=== PATIENT | female | born 1990 | race Two or more races ===

== ENCOUNTER 2024-08-04 09:35 | Inpatient (IN) | payer MEDICAID ==
[2024-08-04] VITALS (11 sets, daily range): BP systolic 108–139; BP diastolic 62–88; PULSE 84–106; RESP 15–18; TEMP 98.1–99.5; O2SAT 95–98
[~2024-08-04] VITALS: Ht 175.3 cm; Wt 109.8 kg
--- NOTE | 2024-08-04 10:28 | DVH ---
BIOPHYSICAL PROFILE HISTORY: pih/gdma1 TECHNIQUE: Multiple transabdominal real-time grayscale sonographic images through the gravid uterus of the fetus with duplex Doppler color flow and M-mode spectral analysis FINDINGS: BIOPHYSICAL PROFILE: breathing score: 2 movement score: 2 tone score: 2 Quantitative ALEXANDER score: 2 (ALEXANDER: 15.8 Cm.) Total score: 8/8 The cervix not visualized. Single live fetus in cephalic presentation. The placenta is anterior. No evidence of previa or abrupt ion. IMPRESSION: 1. Biophysical profile score: 8/8.
[2024-08-04 10:37] LABS: Urine Bacteria None Seen /hpf (None Seen)
[2024-08-04 10:40] LABS: Basophils # (auto) 0 10 ^3/uL (0-0.2); Basophils % (auto) 0.1 % (0.0-2.0); Eosinophils # (auto) 0.1 10 ^3/uL (0-0.8); Eosinophils % (auto) 0.6 % (0.0-7.0); Hematocrit 37.6 % (36.0-46.0); Hemoglobin 12.6 g/dL (12.2-16.2); Lymphocytes # (auto) 1.5 10 ^3/uL (0.4-5.4); Mean Corpuscular Hemoglobin 28.4 pg (28.0-32.0); Mean Corpuscular Hgb Conc. 33.6 g/dL (32.0-36.0); Mean Corpuscular Volume 84.5 fL (80.0-100.0); Monocytes # (auto) 0.6 10 ^3/uL (0-1.3); Monocytes % (auto) 6.1 % (0.0-12.0); Neutrophils % (auto) 77.2 % (37.0-80.0); Platelet Count (auto) 230 10^3/uL (140-450); Red Blood Cells 4.45 10^6/uL (4.0-5.20); Red Cell Distribution Width 14.2 % (11.8-14.3); White Blood Cell 9.1 10^3/uL (4.4-10.8)
[2024-08-04 10:44] LABS: Urine Blood 1+ /uL (Negative); Urine Clarity Clear (Clear); Urine Color Light-Yellow (Yellow); Urine Protein, UAD Negative (Negative); Urine Specific Gravity 1.007 (1.001-1.035); Urine Squamous Epithelial Cell FEW /hpf (<5); Urine Urobilinogen Normal (Negative); Urine WBC 1 /hpf (0 - 5)
[2024-08-04] MEDS ORDERED: LACTATED RINGER'S 1,000 ML IV SCH (10:45)
--- NOTE | 2024-08-04 10:45 | DVHHP2 ---
OB CC & HPI Date Date of Admission: Aug 04, 2024 Patient Identification: : 4 Para: 2 EDC: Aug 20, 2024 EGA: 37+wks Chief Complaints: Reason for admission: observation Indication for : desires repeat Admission Nurse Assessment Rev: No History of Present Complaints pt is admitted for pih,she has gdm and previous cs x1 .pt jhas severe features of pih Past Medical History Cardiac: No pertinent Hx Pulmonary: No pertinent Hx Central Nervous System: No pertinent Hx GI: No pertinent Hx Hemotology/Oncology: No pertinent Hx Hepatobiliary: No pertinent Hx Psychiatric: No pertinent Hx Musculoskeletal: No pertinent Hx Rheumotologic: No pertinent Hx Infectious Disease: No peritnent Hx ENT: No pertinent Hx Renal/: No pertinent Hx Endocrine: No pertinent Hx Dermatology: No pertinent Hx Past Surgical History: OB History OB History Care: Good Care Ultrasounds: Normal mid trimester US Obstetrical Complications: Gestational Diabetes, Pre-eclampsia Medical Complications: None Family & Social History Family/Social History Blood Type: A+ Rubella: immune RPR/VDRL: Negative GBS Status: Unknown HBsAG: Negative Review of Systems Constitutional: No symptom reported Ears, Nose, & Throat: No symptom reported Eyes: No symptom reported Pulmonary/Respiratory: No symptom reported Cardiovascular: No symptom reported Gastrointestinal: No symptom reported Genitourinary: No symptom reported Musculoskeletal: No symptom reported Skin: No symptom reported Psychiatric: No symptom reported Endocrine: No symptom reported Hemotologic/Lymphatic: No symptom reported OB Admission Exam Physical Exam HEENT: TMs Normal, Fontanelles Normal, Nasal Mucosa Normal, Eyes non-injected, Oropharynx Normal, PERRLA, Moist Membranes, EOMI Heart: Rhythm Normal Lungs: Clear Abdomen: Non tender Extremities: Normal Reflexes: Normal Cervical Dilatation: Fingertip Station: -3 Membranes: Intact Heart Rate: 130's Accelerations: Accelerations Present Decelerations: No Decelerations Short Term Variability: Present Half-Way Variability: Average (6-25) Contractions on Admission: >10 Minutes Apart Intensity: Mild OB Plan Plan Admitting Diagnosis: iup at 37+wks with pih gdm ama morbid obesity previous csx1 desires [facility] Plan: Section Other Plan: informed consent obtained ,risks and compl of cs d/w pt.pt fully understands wishes to proceed with [facility] ANA LUISA HENAO DO Aug 04, 2024 10:45
[2024-08-04 10:54] LABS: INR 0.98 (0.9-1.15); Partial Thromboplastin Time 24.4 SEC (24.5-34.5); Prothrombin Time 10.4 sec (9.3-11.8)
[2024-08-04] MEDS: hydrALAZINE HCL 20 MG/ML VL IV ONE (11:06)
[2024-08-04] MEDS: LACTATED RINGER'S 1,000 ML IV ONE (11:25)
[2024-08-04] MEDS: ceFAZolin 2 GM/D5W50ml 50 ML IV ONE (11:26)
[2024-08-04] MEDS ORDERED: HYDR-4072 PO (11:48)
[2024-08-04] MEDS ORDERED: DOCU-94 PO (11:48)
[2024-08-04] MEDS ORDERED: IBUP-1456 PO ×2 (11:48→21:14)
[2024-08-04 11:50] LABS: Alanine Aminotransferase 19 U/L (7-40); Anion Gap 12 (5-15); Aspartate Aminotransferase 29 U/L (13-40); BUN/Creatinine Ratio 12.9 (10.0-20.0); Calcium 10.2 mg/dL (8.7-10.4); Potassium 3.7 mmol/L (3.5-5.1); Sodium 138 mmol/L (136-145); Uric Acid 4.5 mg/dL (3.1-7.8)
[2024-08-04 11:51] LABS: Albumin 3.9 g/dL (3.2-4.8); Bilirubin, Total 0.3 mg/dL (0.2-1.0)
[2024-08-04 11:53] LABS: Amphetamine Screen, Urine Neg (NEGATIVE); Barbiturate Scree,Urine Neg (NEGATIVE); Benzodiazephine Screen, Urine Neg (NEGATIVE); Cannabinoid Screen, Urine Neg (NEGATIVE); Cocaine Screen, Urine Neg (NEGATIVE); Opiate Scree,Urine Neg (NEGATIVE); Phencyclidine Screen, Urine Neg (NEGATIVE)
[2024-08-04 11:55] LABS: Alkaline Phosphatase 157 U/L (46-116); Blood Urea Nitrogen 8 mg/dL (9-23); Carbon Dioxide 17 mmol/L (20-31); Chloride 109 mmol/L (98-107); Glucose 158 mg/dL (74-106)
[2024-08-04] MEDS ORDERED: MORPHINE SULF PF 5 MG/10 ML VIAL ONE (11:57)
[2024-08-04] MEDS ORDERED: fentaNYL CITRATE 100 MCG/2 ML VL ONE (11:57)
[2024-08-04] MEDS ORDERED: DexAMETHasone SOD PHOS 10MG/1ML VIAL INJ ONE (11:58)
[2024-08-04] MEDS ORDERED: oxyTOCIN 10 UNIT/ML 10ML VIAL ONE (11:58)
[2024-08-04] MEDS ORDERED: ONDANSETRON HCL 4 MG/2 ML VIAL ONE (11:58)
[2024-08-04] MEDS ORDERED: SODIUM CHLORIDE LOCK 10 ML ONE (12:22)
[2024-08-04] MEDS ORDERED: PHENYLEPHRINE HCL 10 MG/ML VL ONE (12:22)
[2024-08-04] MEDS ORDERED: METOPROLOL TARTRATE 1MG/1ML-5ML VIAL IV ONE (12:24)
[2024-08-04 12:25] LABS: Protein, Urine 18.2 mg/dL (1-14)
[2024-08-04 12:28] LABS: Creatinine, Urine 34.05 mg/dL (30.0-125.0); Urine Protein/Creatinine Ratio 0.53
[2024-08-04] MEDS ORDERED: ONDANSETRON HCL 4 MG/2 ML VIAL IV PRN ×2 (13:00→13:45)
[2024-08-04] MEDS: GUM (CHEWING) 1 GUM CHEW CHEW ONE (13:00)
[2024-08-04] MEDS ORDERED: ceFAZolin 1GM/50ML 50 ML IV SCH (13:00)
[2024-08-04] MEDS ORDERED: MORPHINE SULFATE 4 MG/ML SYR/VIAL IV PRN (13:00)
[2024-08-04] MEDS ORDERED: NALBUPHINE HCL 10 MG/1ml INJECTION IV ONE (13:45)
[2024-08-04] MEDS ORDERED: HYDROmorphone HCL 2 MG/ML VL/or syr IV PRN (13:45)
[2024-08-04] MEDS ORDERED: diphenhdrAMINE HCL 50 MG/1 ML VL IV PRN (13:45)
[2024-08-04] MEDS ORDERED: NALOXONE HCL 0.4 MG/ML VIAL IV PRN (13:45)
--- NOTE | 2024-08-04 13:45 | DVHOP2 ---
Operative Report DATE OF OPERATION:08/04/24 PREOPERATIVE DIAGNOSES: [term preg desires rcs,pih,gdm,morbid obesity ,previous csx1] POSTOPERATIVE DIAGNOSES: [same] OPERATION PERFORMED: Repeat Section FINDINGS: [b] infant. Apgars of [8] and [9]. Weight [good] crying tone. [clear] amniotic fluid. Placenta and three-vessel were intact. Normal tubes, ovaries, and uterus. Moderate scar tissue. SURGEON: Susana Locke D.O. PIZZA MAKER: health information technician, [adry]. ANESTHESIOLOGIST: Donny jones ANESTHESIA: [Duramorph spinal, regional]. COMPLICATIONS: [none]. ESTIMATED BLOOD LOSS: [800] mL. BLOOD PRODUCTS USED: [na]. PROCEDURE IN DETAIL: The patient was taken to the operating room, placed in sitting position, and spinal was placed without difficulty. She was then prepped and draped in a sterile fashion. A low Pfannenstiel incision was made scapel. At this point, it was carried down through the rectus fascia, nicked in the midline, and carried laterally. The rectus muscles were in the midline. Peritoneum was identified and entered with sharp dissection. Vesicouterine peritoneum was taken off the lower uterine segment. A lower uterine transverse incision was made with a scalpel down the chorionic membranes, ruptured with hemostat. Infant was in vertex position. One hand was placed in the lower uterine segment. Head was essentially delivered spontaneously. Nose and mouth were bulb suctioned. Shoulders and torso were delivered without difficulty. Again, pharynx, nose, and mouth were re-suctioned with vigorous crying tone. Cord was cut. The was handed off to the awaiting Respiratory. At this point, umbilical blood sample was taken. Placenta was removed. Uterus was exteriorized, cleared off all clots and debris, irrigated, and closed with a double layer of 0-Vicryl. The vesicouterine peritoneum was incorporated into this closure. We had complete hemostasis. EBL was [800] mL. The instrument, lap, and sponge count was correct x1. The uterus was placed back into the peritoneum. The peritoneal cavity was re-inspected and the lower uterine incision with good hemostasis. We closed the peritoneum with running continuous of 2-0 Vicryl. The Rectus Fascia was closed with 0-PDS, running continuous, looped-0. The skin was closed undermined, irrigated, and close with sina. CONDITION: The patient's and the 's condition is stable and but guarded. SUSANA LOCKE DO Aug 04, 2024 13:45
--- NOTE | 2024-08-04 13:47 | POSTOP ---
Post-Operative Note Post-Operative Note Preop Diagnosis iup at 37wks with pih,gdm,ama,morbid obesity,previous csx1 Postop Diagnosis: same Operation performed rcs Specimen baby boy,apgars 8-9 Anesthesia: Regional Anesthesiologist: cara Blood Loss(fluid mgmt) 800ml Surgeon Ana Luisa Locke Proposal Development Manager adry Implant na Complications & Mgmt none Date 08/04/24 Time 13:45 ANA LUISA LOCKE DO Aug 04, 2024 13:47
[2024-08-04] MEDS: ceFAZolin 1GM/50ML 50 ML IV SCH (19:39)
[2024-08-04] MEDS ORDERED: PREN-96 PO (21:14)
[2024-08-04 22:27] LABS: Basophils # (auto) 0 10 ^3/uL (0-0.2); Basophils % (auto) 0.1 % (0.0-2.0); Eosinophils # (auto) 0 10 ^3/uL (0-0.8); Hematocrit 33.3 % (36.0-46.0); Hemoglobin 11.1 g/dL (12.2-16.2); Lymphocytes # (auto) 1.5 10 ^3/uL (0.4-5.4); Lymphocytes % (auto) 9.6 % (10.0-50.0); Mean Corpuscular Hemoglobin 28.3 pg (28.0-32.0); Mean Corpuscular Hgb Conc. 33.4 g/dL (32.0-36.0); Mean Corpuscular Volume 84.7 fL (80.0-100.0); Monocytes # (auto) 1.1 10 ^3/uL (0-1.3); Monocytes % (auto) 7.3 % (0.0-12.0); Neutrophils # (auto) 12.7 10 ^3/uL (1.6-8.6); Platelet Count (auto) 248 10^3/uL (140-450); Red Blood Cells 3.93 10^6/uL (4.0-5.20); Red Cell Distribution Width 14.2 % (11.8-14.3); White Blood Cell 15.3 10^3/uL (4.4-10.8)
[2024-08-05] VITALS (12 sets, daily range): BP systolic 99–147; BP diastolic 58–85; PULSE 95–122; RESP 15–20; TEMP 97.6–98.6; O2SAT 95–99
[2024-08-05] MEDS: ACETAMINOPHEN IV 1000 MG/100ML (10MG/ML) IV PRN (00:41)
--- NOTE | 2024-08-05 01:00 | DVHPN2 ---
Progress Note Date Seen: Aug 05, 2024 Subjective S: Pt feeling good, pain is controlled with medications, trying to sleep. Pt denies MUNOZ/vision changes/RUQ pain. vital signs Vital Sign Date Time Temp Pulse Resp B/P (MAP) Pulse Ox O2 Delivery O2 Flow Rate FiO2 08/05/24 00:15 97 17 99/72 (81) 95 08/04/24 19:02 Room Air 08/04/24 18:15 99.5 99.5 08/04/24 13:31 5.0 100 Total Intake and Output 08/04/24 08/04/24 08/05/24 15:00 23:00 07:00 Intake Total 50 ml Output Total 550 ml 1000 ml Balance -500 ml -1000 ml medications Current Medications Medications Dose Ordered Sig/Kingsley Route Start Time Stop Time Status Last Admin Dose Admin Lactated Ringer's 1,000 ml @ 125 mls/hr Q8H IV 08/04/24 10:45 Morphine Sulfate 2 mg Q4HP PRN IV 08/04/24 13:00 Diphenhydramine HCl 25 mg Q4HP PRN IV 08/04/24 13:45 Ondansetron HCl 4 mg Q4HP PRN IV 08/04/24 13:45 Cefazolin Sodium 50 ml @ 100 mls/hr Q8H IV 08/04/24 20:00 08/05/24 12:29 08/04/24 19:39 100 MLS/HR Acetaminophen 1,000 mg Q8HP PRN IV 08/04/24 19:30 08/05/24 00:41 1,000 MG Ketorolac Tromethamine 30 mg Q6HPRN PRN IV 08/05/24 01:00 08/10/24 00:59 UNV laboratory and microbiology Laboratory Tests 08/04/24 22:11 08/04/24 10:02 Test 08/04/24 10:02 Range/Units Serum Glucose 158 H 74-106 mg/dL Objective O: VSS Chest: heart sounds normal and lung sounds clear bilaterally Abd: soft, non-tender, fundus at U/firm/midline, active bowel sounds, no rebound or guarding Incision: sylke dressing open to air, 2 dots of old blood noted, clean/dry/intact Ext: Non-tender, No edema, 2+ BLE DTRs Lochia: minimal See lab results Problems(with codes): (1) Precipitous drop in hematocrit (2) S/P repeat low transverse (3) Preeclampsia Assessment/Plan A: 33yo now POD#1 s/p Repeat Preeclampsia -Continue with post-op PP care -MARNIE co-managing care with Dr. Locke, who is managing preeclampsia Plan discussed with: Patient, Spouse SANJAY ALICEA CNM Aug 05, 2024 01:00
[2024-08-05] MEDS: KETOROLAC TROMETH 30 MG/ML 1ML VIAL IV PRN (05:22)
[2024-08-05 07:31] LABS: Basophils # (auto) 0 10 ^3/uL (0-0.2); Basophils % (auto) 0.2 % (0.0-2.0); Eosinophils # (auto) 0.1 10 ^3/uL (0-0.8); Eosinophils % (auto) 0.5 % (0.0-7.0); Hematocrit 29.2 % (36.0-46.0); Hemoglobin 9.9 g/dL (12.2-16.2); Lymphocytes # (auto) 2.1 10 ^3/uL (0.4-5.4); Lymphocytes % (auto) 16.7 % (10.0-50.0); Mean Corpuscular Hemoglobin 28.6 pg (28.0-32.0); Mean Corpuscular Hgb Conc. 33.9 g/dL (32.0-36.0); Mean Corpuscular Volume 84.4 fL (80.0-100.0); Monocytes # (auto) 1.4 10 ^3/uL (0-1.3); Monocytes % (auto) 10.9 % (0.0-12.0); Neutrophils % (auto) 71.7 % (37.0-80.0); Platelet Count (auto) 208 10^3/uL (140-450); Red Blood Cells 3.46 10^6/uL (4.0-5.20); Red Cell Distribution Width 14.2 % (11.8-14.3); White Blood Cell 12.6 10^3/uL (4.4-10.8)
[2024-08-05 08:06] LABS: RPR Non Reactive (Non Reactive)
[2024-08-05] MEDS: LACT. RINGERS/OXYTOCIN 20UNITS 1,000 ML IV ONE (12:00)
[2024-08-05] MEDS ORDERED: HYDROcodone-ACET 5/325MG TAB PO PRN (13:00)
[2024-08-05] MEDS: HYDROcodone-ACET 5/325MG TAB PO PRN (13:31)
[2024-08-05] MEDS: IBUPROFEN 800 MG TAB PO PRN (16:19)
[2024-08-05] MEDS ORDERED: FER325T PO (16:43)
[2024-08-05] MEDS: SIMETHICONE 80 MG CHEWABLE TABLET PO SCH (17:24)
[2024-08-05] MEDS: DOCUSATE SOD 100 MG CAP PO SCH (22:45)
[2024-08-06 03:00] VITALS: BP 133/73; PULSE 105; RESP 16; TEMP 97.8; O2SAT 97
--- NOTE | 2024-08-06 06:22 | DVHPN2 ---
Progress Note Date Seen: Aug 06, 2024 Subjective S: bleeding is less, eating food without issues, denies lightheaded/dizziness, pain well controlled with oral medications, no concerns with urinating, passing flatus, no BM yet, ambulating well, and formula. Pt denies MUNOZ/vision changes/RUQ pain. vital signs Vital Sign Date Time Temp Pulse Resp B/P (MAP) Pulse Ox O2 Delivery O2 Flow Rate FiO2 08/06/24 03:00 97.8 105 16 133/73 (93) 97 97.8 08/05/24 07:00 Room Air 08/04/24 13:31 5.0 100 Total Intake and Output 08/05/24 08/05/24 08/06/24 15:00 23:00 07:00 Output Total 750 ml 650 ml Balance -750 ml -650 ml medications Current Medications Medications Dose Ordered Sig/Kingsley Route Start Time Stop Time Status Last Admin Dose Admin Morphine Sulfate 2 mg Q4HP PRN IV 08/04/24 13:00 Diphenhydramine HCl 25 mg Q4HP PRN IV 08/04/24 13:45 Ondansetron HCl 4 mg Q4HP PRN IV 08/04/24 13:45 Docusate Calcium 240 mg DAILY PO 08/06/24 10:00 Docusate Sodium 100 mg Q12HR PO 08/05/24 22:00 08/05/24 22:45 100 MG Dimethicone 80 mg QID PO 08/05/24 18:00 08/05/24 22:45 80 MG Ibuprofen 800 mg Q8HP PRN PO 08/05/24 13:00 08/05/24 16:19 800 MG Acetaminophen/ Hydrocodone Bitart 1 tab Q4HPRN PRN PO 08/05/24 13:00 08/05/24 17:36 1 TAB Acetaminophen/ Hydrocodone Bitart 2 tab Q4HPRN PRN PO 08/05/24 13:00 laboratory and microbiology Laboratory Tests 08/05/24 06:31 08/04/24 10:02 Test 08/04/24 10:02 Range/Units Serum Glucose 158 H 74-106 mg/dL Objective O: VSS except tachycardia (120-130s) last night, 300 ml IV LR bolus given and EKG done (sinus tachycardia per ED physician) This morning HR is in the 100s Chest: heart sounds normal and lung sounds clear bilaterally Abd: soft, non-tender, fundus at U/firm/midline, active bowel sounds, no rebound or guarding Incision: sylke dressing open to air, 2 dots of old blood noted, clean/dry/intact Ext: Non-tender, No edema, 2+ BLE DTRs Lochia: minimal See lab results Problems(with codes): (1) Preeclampsia (2) Precipitous drop in hematocrit (3) S/P repeat low transverse Assessment/Plan A: 33yo now POD#2 s/p repeat Preeclampsia Rh+ Rubella Immune Breast and formula feeding Pain control with PO medications Bowel regimen P: D/C home today Rx sent to pharmacy precautions and preeclampsia warning signs reviewed F/U with [facility] office in 1 week Plan discussed with: Patient, Spouse SANJAY ALICEA CNM Aug 06, 2024 06:22
--- NOTE | 2024-08-06 06:28 | DVHDS2 ---
Obstetrics Discharge Summary Obstetrics Discharge Summary Date of Admission: Aug 04, 2024 Date of Discharge: Aug 06, 2024 Reason For Admission: Section (Repeat) Procedures: NST, Mgmt of Obstetrics Compli (preeclampsia) Intrapartum Procedures: (LTCS) Procedures: Antibiotics, Hct/date: (08/05/24), Hgb/date: (08/05/24) Operative Complicat: None Discharge Diagnosis: Term -Delivered, Preeclampsia Discharge Information: Activity (as tolerated, no heavy lifting and nothing in the vagina for 6 weeks), Diet (Routine), Medications (Rx sent), Instructions (Routine), Discharge to (Home), Accompanied by (partner), Discarge date (08/06/24) SANJAY ALICEA CNM Aug 06, 2024 06:28
[2024-08-06 07:00] VITALS: BP 134/78; PULSE 109; RESP 17; TEMP 98.7; O2SAT 98
[2024-08-06] MEDS: DOCUSATE CALCIUM 240 MG CAP PO SCH (09:55)
[2024-08-06 11:26] VITALS: BP 143/86; PULSE 118; RESP 16; TEMP 98.5; O2SAT 99
--- NOTE | 2024-08-07 10:42 | ECG ---
[facility] Test Date: 2024-08-05 Test Time: 17:47:33 Pat Name: PAM HERNÁNDEZ Department: Room: [facility] B Gender: F Community Arts Officer: ALBERT : 1990 Requested By: SANJAY ALICEA Order Number: [id number] Reading MD: Measurements Intervals [place] Rate: 124 P: 32 RI: 148 QRS: 19 QRSD: 76 T: -12 QT: 304 QTc: 436 Interpretive Statements Sinus tachycardia Cannot rule out Inferior infarct , age undetermined Please click the below link to view image of tracing.
== END 2024-08-06 12:47 | disposition home or self-care (01) | DRG 540 ==
LOC: UNDOADMOB 09:35 → LDRP 09:35 → OBSVTOIN 10:42 → LDRP 10:42
PROVIDERS: ADMIT Obstetrics & Gynecology; ATTEND Obstetrics & Gynecology
PROC: 10D00Z1 Extraction of Products of Conception, Low, Open Approach (ICD-10-PCS; principal; 2024-08-04 12:12)
DX: O13.4 Gestational [pregnancy-induced] hypertension without significant proteinuria, complicating childbirth (principal); O14.94 Unspecified pre-eclampsia, complicating childbirth; O24.429 Gestational diabetes mellitus in childbirth, unspecified control; O99.214 Obesity complicating childbirth; E66.01 Morbid (severe) obesity due to excess calories; O34.211 Maternal care for low transverse scar from previous cesarean delivery; Z3A.37 37 weeks gestation of pregnancy; Z37.0 Single live birth
CPT/HCPCS: 36415; 59025; 76818; 80053; 80307; 81001; 81002; 82570; 84156; 84550; 85025; 85610; 85730; 86592; 86780; 86850; 86900; 86901; 94760; 94762; 96360; 96361; 96374; G0378; J0131; J1100; J1885; J2405; J2590